=== PATIENT | female | born 1955 | race Caucasian/White ===

== ENCOUNTER → 2018-05-05 07:31 | Outpatient (CLI) | payer OTHER, SELFPAY ==
[2018-05-05 08:10] LABS: Add Manual Diff / Slide Review NO; Basophils Percent Auto 1.1 % (0-2); Eosinophils Percent Auto 5.5 % (2-4); Hematocrit 41.4 % (36-46); Lymphocytes Percent Auto 42.2 % (25-40); Mean Corpuscular HGB Conc 33.9 % (30-36); Mean Corpuscular Hemoglobin 31.5 PG (26-34); Mean Corpuscular Volume 92.9 fL (80-100); Neutrophils Absolute Auto 2200 /uL (3000-5900); Neutrophils Percent Auto 44.2 % (50-75); Platelet Count 330 X10^3/uL (150-400); Red Blood Cell Count 4.45 X10^6/uL (4.0-5.2); Red Cell Distribution Width 13.4 % (11.6-14.8)
[2018-05-05 08:18] LABS: Alanine Aminotransferase 21 IU/L (9-52); Albumin 4.4 g/dL (3.5-5.0); Albumin Globulin Ratio 1.5 (1.0-2.8); Alkaline Phosphatase 71 U/L (38-126); Aspartate Aminotransferase 21 IU/L (14-36); BUN Creatinine Ratio 22.2 (6-22); Bilirubin Total 0.8 mg/dL (0.2-1.3); Blood Urea Nitrogen 20 mg/dL (7-17); Calcium 9.6 mg/dL (8.4-10.2); Carbon Dioxide 32 mmol/L (22-32); Chloride 102 mmol/L (98-107); Cholesterol 202 mg/dL (140-199); Estimated Glomerular Filt Rate > 60.0 mL/min (>60); Glucose 96 mg/dL (80-110); HDL Cholesterol 64 mg/dL (40-60); HEMOLYSIS < 15 (0-50); LDL Cholesterol Calculated 109 mg/dL (<100); Potassium 4.3 mmol/L (3.4-5.1); Sodium 143 mmol/L (137-145); Total Protein 7.4 g/dL (6.3-8.2); Triglycerides 147 mg/dL (35-150)
[2018-05-05 08:47] LABS: Thyroid Stimulating Hormone 4.16 uIU/mL (0.47-4.68)
== END ==
PROVIDERS: Family Provider Internal Medicine; PCP Internal Medicine; Visit Provider Internal Medicine
DX: E78.5 Hyperlipidemia, unspecified (principal)
CPT/HCPCS: 36415; 80053; 80061; 84443; 85025

== ENCOUNTER → 2018-05-18 12:12 | Outpatient (CLI) | payer OTHER, SELFPAY ==
--- NOTE | 2018-05-18 12:15 | DI.US.S_ITS ---
PROCEDURE: US PELVIC COMPLETE INDICATIONS: FAMILY HISTORY OVARIAN CANCER TECHNIQUE: Real-time scanning was performed of the pelvic organs, with image documentation. Additional endovaginal scanning was necessary due to incomplete visualization of the adnexal and endometrial structures by transabdominal scanning. COMPARISON: [facility], , PELVIC COMPLETE, 03/18/2016, 13:10. FINDINGS: Transabdominal scanning: Limited scanning through the kidneys shows no hydronephrosis. No pathologic free abdominal or pelvic fluid. Posterior intramural fibroid no significant change measuring 1.7 x 1.1 x 1.9 cm. Endovaginal scanning: Uterus: Uterus is normal in size at 6.4 x 3.1 x 4.3 cm. The endometrium measures 2.9 mm in combined thickness. Ovaries: Normal ovary measuring 1.5 x 1.2 x 1.1 cm on the right and 1.6 x 0.9 x 0.9 cm on the left. IMPRESSION: Stable appearance of intramural fibroid and otherwise normal pelvic ultrasound. Dictated by: Elliott YOUNG Interpreted: Eduar Underwood MD on 05/18/2018 at 14:48 Approved by: Eduar Underwood M.D. on 05/18/2018 at 15:44
== END ==
PROVIDERS: Family Provider Internal Medicine; PCP Internal Medicine; Visit Provider Internal Medicine
DX: Z12.73 Encounter for screening for malignant neoplasm of ovary (principal); Z80.41 Family history of malignant neoplasm of ovary
CPT/HCPCS: 76830; 76856

== ENCOUNTER → 2018-08-25 15:24 | Outpatient (CLI) | payer OTHER, SELFPAY ==
--- NOTE | 2018-08-25 | DI.MG.S_ITS ---
BILATERAL DIGITAL SCREENING MAMMOGRAM 3D/2D WITH CAD: 08/25/2018 CLINICAL: Routine screening. Family history of breast cancer. Comparison is made to exams dated: 08/08/2017 mammogram, 07/23/2016 mammogram, and 07/14/2015 mammogram - [facility]. The tissue of both breasts is heterogeneously dense. This may lower the sensitivity of mammography. Current study was also evaluated with a Computer Aided Detection (CAD) system. No significant masses, calcifications, or other findings are seen in either breast. There has been no significant interval change. IMPRESSION: NEGATIVE There is no mammographic evidence of malignancy. A 1 year screening mammogram is recommended. This exam was interpreted at Station ID: [id number]. NOTE: For mammograms, a report in lay terms will be sent to the patient. Approximately 15% of breast malignancies will not be visualized mammographically. In the management of a palpable breast mass, a negative mammogram must not discourage biopsy of a clinically suspicious lesion. Electronically Signed By: Elysia de los santos/ev:08/25/2018 15:52:30 letter sent: Normal Exam ACR BI-RADS Category 1: Negative 3341F
== END ==
PROVIDERS: PCP Internal Medicine; Visit Provider Internal Medicine
DX: Z12.31 Encounter for screening mammogram for malignant neoplasm of breast (principal); Z80.3 Family history of malignant neoplasm of breast
CPT/HCPCS: 77063; 77067

== ENCOUNTER 2019-06-02 20:13 | Emergency (ER) | payer OTHER, SELFPAY ==
[2019-06-02 20:21] VITALS: BP 135/58; PULSE 71; RESP 16; TEMP 36.9; O2SAT 100; BMI 19.5
--- NOTE | 2019-06-02 20:23 | DI.RAD.S_ITS ---
PROCEDURE: XR ANKLE RT MIN 3V INDICATIONS: rolled right ankle TECHNIQUE: 3 views of the ankle were acquired. COMPARISON: None. FINDINGS: Bones: Transverse nondisplaced distal fibular fracture. There is a partially evaluated, possibly Y. shaped, intra-articular fracture at the base of the fifth metatarsal with mild displacement. No other fractures are visible. Ankle mortise is normally aligned. No suspicious bony lesions. Soft tissues: Small tibiotalar joint effusion. Achilles tendon appears normal. IMPRESSION: 1. Nondisplaced distal fibular avulsion fracture. 2. Mildly displaced, Y. shaped fracture at the fifth metatarsal base with intra-articular extension. Further evaluation with plain films of the right foot is recommended. This was discussed with Dr. Ovalle in emergency room at 2048 hrs. 3. Small tibiotalar joint effusion. Dictated by: Dalila Villanueva M.D. on 06/02/2019 at 20:47 Approved by: Dalila Villanueva M.D. on 06/02/2019 at 20:51
--- NOTE | 2019-06-02 20:36 | ED.LOWEXIN ---
HPI - Extremity Injury (Lower) General Chief Complaint: Extremity Injury, Lower Stated Complaint: fall down stairs, rolled right foot, pain Time Seen by Provider: 06/02/19 20:14 Source: patient Mode of arrival: wheelchair Limitations: no limitations History of Present Illness HPI Narrative: 64-year-old female here for evaluation of right ankle/foot injury. She states that she rolled her ankle when she was walking down the flex stairs. She did not hit her head. Has been unable to walk since then. Related Data Home Medications Medication Instructions Recorded Confirmed CA PANTOTHENATE/FOLIC ACID/VIT 1 tab PO Q DAY #0 04/10/12 05/09/18 (MULTIVITAMIN) Coenzyme Q10 (#CO ENZYME Q-10) 100 mg PO QDAY #0 04/10/12 05/09/18 Previous Rx's Medication Instructions Recorded spironolactone 100 mg tablet 100 mg PO QDAY #90 tab 05/09/18 Allergies Allergy/AdvReac Type Severity Reaction Status Date / Time Sulfa (Sulfonamide Allergy Mild Unverified 06/02/19 20:23 Antibiotics) Review of Systems Constitutional Constitutional: Denies fever(s) and Denies headache(s) ENT Ears, Nose, Mouth, and Throat: Denies headache(s) Cardiovascular Cardiovascular: Denies chest pain and Denies dyspnea Respiratory Respiratory: Denies dyspnea Musculoskeletal Comments: Right ankle pain Integumentary/Breasts Comments: Bruising the right side of foot Neurologic Neurologic: Denies headache(s) Hematologic/Lymphatic Hematologic/Lymphatic: Denies easy bleeding and Denies easy bruising [facility] Medical History Abnormal Pap smear of cervix (Resolved) Acne (Chronic ~1967) Chicken pox (Resolved ~1969) Headache (Chronic ~1974) Hyperlipidemia (Chronic) Migraines (Chronic ~1977) Mumps (Resolved ~1967) Sleep apnea (Chronic ~2014) Vision disorder (Chronic) Surgical History (Updated 05/16/18 @ 19:00 by Nancy Gonzales) Anesthesia (Resolved) Femur fracture (Resolved ~1982) History of plastic surgery (Resolved ~1984) History of plastic surgery (Acute ~1982) Status post dilation and curettage (~1994) Family History Brother Age: 57 High cholesterol Father Age: 88 Cancer Heart disease Hypertension High cholesterol Mother Age: 88 Hypertension High cholesterol Dementia History of hysterectomy Hospice care Grandfather Heart disease Grandmother Heart disease Grandfather Lymphoma Grandmother No problems noted. Social History Smoking Status: Never smoker Family History Brother Age: 57 High cholesterol Father Age: 88 Cancer Heart disease Hypertension High cholesterol Mother Age: 88 Hypertension High cholesterol Dementia History of hysterectomy Hospice care Grandfather Heart disease Grandmother Heart disease Grandfather Lymphoma Grandmother No problems noted. Social History Smoking Status: Never smoker Exam Initial Vital Signs Initial Vital Signs: Vital Signs Temperature 98.4 F 06/02/19 20:21 Pulse Rate 71 06/02/19 20:21 Respiratory Rate 16 06/02/19 20:21 Blood Pressure 135/58 L 06/02/19 20:21 Pulse Oximetry 100 06/02/19 20:21 Const General: cooperative and comfortable Orientation: alert and awake HENMT Head: normal to inspection and normocephalic Resp Effort & Inspection: normal respiratory effort Auscultation: clear to auscultation bilaterally Cardio Pulses: dorsalis pedis present on the right Skin Other: Bruising along the base of the 5th metatarsal on the right Neuro Sensory Exam: no sensory deficits noted Extrem Other: No proximal fibula tenderness. does have tenderness to palpation at the base of the lateral malleolus and along the base of the 5th metatarsal Psych Appearance: grossly normal and well kempt Procedures Orthopedic Splinting/Casting Injury #1: Side: right Lower Extremity Injury Location: ankle Lower Extremity Immobilizer: boot orthosis Other Orthopedic Equipment: crutches Post splinting neuro exam: intact Post splinting vascular exam: intact Placed by: Nursing Course Orders Ordered: ED Orders 06/02/19 20:23 XR ankle RT min 3V Stat 06/02/19 20:47 XR foot RT min 3V Stat Vital Signs Vital signs: Vital Signs - 8 hr 06/02/19 20:21 Temperature 98.4 F Pulse Rate 71 Respiratory Rate 16 Blood Pressure 135/58 L Pulse Oximetry 100 MDM - Extremity Injury (Lower) Imaging Data X-ray ankle: Radiologist's impression: [address] [address] XRay Report Signed Patient: Fidelina Damon#: [id number] : 7Acct:[id number] Age/Sex: 64 / FDate of Service: 06/02/19 Loc: ED Accession Number: [id number] Procedure: XR ankle RT min 3V Ordering Provider: Ad Ovalle D.O. PROCEDURE: XR ANKLE RT MIN 3V INDICATIONS: rolled right ankle TECHNIQUE: 3 views of the ankle were acquired. COMPARISON: None. FINDINGS: Bones: Transverse nondisplaced distal fibular fracture. There is a partially evaluated, possibly Y. shaped, intra-articular fracture at the base of the fifth metatarsal with mild displacement. No other fractures are visible. Ankle mortise is normally aligned. No suspicious bony lesions. Soft tissues: Small tibiotalar joint effusion. Achilles tendon appears normal. IMPRESSION: 1. Nondisplaced distal fibular avulsion fracture. 2. Mildly displaced, Y. shaped fracture at the fifth metatarsal base with intra-articular extension. Further evaluation with plain films of the right foot is recommended. This was discussed with Dr. Ovalle in emergency room at 2048 hrs. 3. Small tibiotalar joint effusion. Dictated by: Dalila Villanueva M.D. on 06/02/2019 at 20:47 Approved by: Dalila Villanueva M.D. on 06/02/2019 at 20:51 X-ray foot: Radiologist's impression: [place] [address] XRay Report Signed Patient: Fidelina Damon [facility]#: [id number] : 7At:[id number] Age/Sex: 64 / FDate of Service: 06/02/19 Loc: ED Accession Number: [id number] Procedure: XR foot RT min 3V Ordering Provider: Ad Ovalle D.O. PROCEDURE: XR FOOT RT MIN 3V INDICATIONS: base of 5th fx TECHNIQUE: 3 views of the foot were acquired. COMPARISON: None. FINDINGS: Bones: Moderately displaced, single plane, oblique transverse fracture through the lateral aspect of the fifth metatarsal base extending through the midportion of the articular surface. No other fractures or malalignment. Nondisplaced distal fibular avulsion fracture is also partially imaged. No suspicious bony lesions. Soft tissues: No tibiotalar joint effusion. Achilles tendon appears normal. IMPRESSION: Moderately displaced, intra-articular fifth metatarsal base fracture. Nondisplaced distal fibular cortical avulsion fracture. Dictated by: Dalila Villanueva M.D. on 06/02/2019 at 21:08 Approved by: Dalila Villanueva M.D. on 06/02/2019 at 21:10 [facility] Narrative Medical decision making narrative: Patient is neurovascularly intact. She does have a distal fibular fracture and avulsion fracture of the base of the 5th metatarsal. She was placed in a walking boot and given crutches. She denied any need for pain medication. We discussed return precautions and follow-up instructions. She expressed understanding and agreement with plan. Discharge Plan Departure Patient Disposition: Home Clinical Impression: Fracture of distal end of fibula Qualifiers: Encounter type: initial encounter Fracture type: closed Fracture morphology: unspecified fracture morphology Laterality: right Qualified Code(s): S82.831A - Other fracture of upper and lower end of right fibula, initial encounter for closed fracture Fracture of fifth metatarsal bone of right foot Qualifiers: Encounter type: initial encounter Fracture type: closed Fracture alignment: nondisplaced Qualified Code(s): S92.354A - Nondisplaced fracture of fifth metatarsal bone, right foot, initial encounter for closed fracture Instructions: How to Use Crutches, Foot Fracture, DI for Ankle Fracture, How to Use a Walking Boot Activity Restrictions/Additional Instructions: Use the crutches as needed for your comfort. The walking boot should be worn when you are going long distance is however you can put pressure on your foot without the boot. You can take the boot off to shower and to sleep. On Tuesday contact your primary provider for a follow-up. If needed you can contact the [facility] group at [phone] Prescriptions: No Action Coenzyme Q10 (#CO ENZYME Q-10) 100 mg PO QDAY Qty: 0 RF: 0 CA PANTOTHENATE/FOLIC ACID/VIT (MULTIVITAMIN) 1 tab PO Q DAY Qty: 0 RF: 0 spironolactone 100 mg tablet 100 mg PO QDAY Qty: 90 RF: 3 Referrals: Joana Barrios ARNP [Primary Care Provider] -
--- NOTE | 2019-06-02 20:47 | DI.RAD.S_ITS ---
PROCEDURE: XR FOOT RT MIN 3V INDICATIONS: base of 5th fx TECHNIQUE: 3 views of the foot were acquired. COMPARISON: None. FINDINGS: Bones: Moderately displaced, single plane, oblique transverse fracture through the lateral aspect of the fifth metatarsal base extending through the midportion of the articular surface. No other fractures or malalignment. Nondisplaced distal fibular avulsion fracture is also partially imaged. No suspicious bony lesions. Soft tissues: No tibiotalar joint effusion. Achilles tendon appears normal. IMPRESSION: Moderately displaced, intra-articular fifth metatarsal base fracture. Nondisplaced distal fibular cortical avulsion fracture. Dictated by: Dalila Villanueva M.D. on 06/02/2019 at 21:08 Approved by: Dalila Villanueva M.D. on 06/02/2019 at 21:10
[2019-06-02 21:56] VITALS: BP 110/62; PULSE 57; RESP 16; O2SAT 99
== END 2019-06-02 21:56 | disposition home or self-care (01) ==
PROVIDERS: Emergency Provider Emergency Medicine; PCP Internal Medicine
DX: S82.831A Other fracture of upper and lower end of right fibula, initial encounter for closed fracture (principal); S92.354A Nondisplaced fracture of fifth metatarsal bone, right foot, initial encounter for closed fracture
CPT/HCPCS: 29505; 29550; 73610; 73630; 99283

== ENCOUNTER → 2019-09-06 17:59 | Outpatient (CLI) | payer OTHER, SELFPAY ==
--- NOTE | 2019-09-06 | DI.MG.S_ITS ---
BILATERAL DIGITAL SCREENING MAMMOGRAM 3D/2D WITH CAD: 09/06/2019 CLINICAL: Routine screening. Family history of breast cancer. Comparison is made to exams dated: 08/25/2018 mammogram, 08/08/2017 mammogram, and 07/23/2016 mammogram - [facility]. The tissue of both breasts is heterogeneously dense. This may lower the sensitivity of mammography. Current study was also evaluated with a Computer Aided Detection (CAD) system. No significant masses, calcifications, or other findings are seen in either breast. There has been no significant interval change. IMPRESSION: NEGATIVE There is no mammographic evidence of malignancy. A 1 year screening mammogram is recommended. This exam was interpreted at Station ID: [id number]. NOTE: For mammograms, a report in lay terms will be sent to the patient. Approximately 15% of breast malignancies will not be visualized mammographically. In the management of a palpable breast mass, a negative mammogram must not discourage biopsy of a clinically suspicious lesion. Electronically Signed By: Elysia de los santos/ev:09/07/2019 08:00:22 letter sent: Normal Exam ACR BI-RADS Category 1: Negative 3341F
== END ==
PROVIDERS: PCP Internal Medicine; Visit Provider Internal Medicine
DX: Z12.31 Encounter for screening mammogram for malignant neoplasm of breast (principal); Z80.3 Family history of malignant neoplasm of breast
CPT/HCPCS: 77063; 77067

== ENCOUNTER → 2019-11-08 11:47 | Outpatient (CLI) | payer OTHER, SELFPAY ==
--- NOTE | 2019-11-08 | DI.US.S_ITS ---
PROCEDURE: US PELVIC COMPLETE INDICATIONS: LLQ ABD SWELLING, MASS TECHNIQUE: Real-time scanning was performed of the pelvic organs, with image documentation. Additional endovaginal scanning was necessary due to incomplete visualization of the adnexal and endometrial structures by transabdominal scanning. COMPARISON: [facility], , US PELVIC COMPLETE, 05/18/2018, 12:23. FINDINGS: Transabdominal scanning: Limited scanning through the kidneys shows no hydronephrosis. No pathologic free abdominal or pelvic fluid. Endovaginal scanning: Uterus: Uterus is normal in size at this 0.1 x 3.1 x 3.9 cm. The endometrium measures 1.9 mm in combined thickness. There is a 1.5 x 1.1 x 1.8 cm intramural fibroid on the posterior wall at midline. Ovaries: Ovaries are normal in size and echotexture. Right ovary measures 1.9 x 1.1 x 1.0 cm. Left ovary measures 2.0 x 0.9 x 0.9 cm. Note is made of prominent pelvic vessels. IMPRESSION: 1. Stable intramural uterine fibroid. 2. Normal ovaries. 3. Dilated pelvic vessels may be secondary to pelvic congestion syndrome. Dictated by: Rebel Graf M.D. on 11/08/2019 at 14:01 Approved by: Rebel Graf M.D. on 11/08/2019 at 14:16
== END ==
PROVIDERS: PCP Internal Medicine; Referring Provider Internal Medicine; Visit Provider Internal Medicine
DX: R19.04 Left lower quadrant abdominal swelling, mass and lump (principal); D25.1 Intramural leiomyoma of uterus
CPT/HCPCS: 76830; 76856

== ENCOUNTER → 2020-09-09 16:37 | Outpatient (CLI) | payer OTHER, SELFPAY ==
--- NOTE | 2020-09-09 16:38 | DI.MG.S_ITS ---
BILATERAL DIGITAL SCREENING MAMMOGRAM 3D/2D WITH CAD: 09/09/2020 CLINICAL: Routine screening. Family history of breast cancer. Comparison is made to exams dated: 09/06/2019 mammogram, 08/25/2018 mammogram, 08/08/2017 mammogram, 07/23/2016 mammogram, and 07/14/2015 mammogram - [facility]. The tissue of both breasts is heterogeneously dense. This may lower the sensitivity of mammography. Current study was also evaluated with a Computer Aided Detection (CAD) system. No significant masses, calcifications, or other findings are seen in either breast. There has been no significant interval change. IMPRESSION: NEGATIVE There is no mammographic evidence of malignancy. A 1 year screening mammogram is recommended. This exam was interpreted at Station ID: [id number]. NOTE: For mammograms, a report in lay terms will be sent to the patient. Approximately 15% of breast malignancies will not be visualized mammographically. In the management of a palpable breast mass, a negative mammogram must not discourage biopsy of a clinically suspicious lesion. Electronically Signed By: Sree jorgensen/ev:09/10/2020 08:45:27 letter sent: Normal Exam ACR BI-RADS Category 1: Negative 3341F
== END ==
PROVIDERS: PCP Internal Medicine; Referring Provider Internal Medicine; Visit Provider Internal Medicine
DX: Z12.31 Encounter for screening mammogram for malignant neoplasm of breast (principal); Z80.3 Family history of malignant neoplasm of breast
CPT/HCPCS: 77063; 77067

== ENCOUNTER → 2021-10-17 14:13 | Outpatient (CLI) | payer OTHER, SELFPAY ==
--- NOTE | 2021-10-17 14:14 | DI.MG.S_ITS ---
BILATERAL DIGITAL SCREENING MAMMOGRAM 3D/2D WITH CAD: 10/17/2021 CLINICAL: Routine screening. Family history of breast cancer. Comparison is made to exams dated: 09/09/2020 mammogram, 09/06/2019 mammogram, and 08/25/2018 mammogram - [facility]. The tissue of both breasts is heterogeneously dense. This may lower the sensitivity of mammography. Current study was also evaluated with a Computer Aided Detection (CAD) system. No significant masses, calcifications, or other findings are seen in either breast. There has been no significant interval change. IMPRESSION: NEGATIVE There is no mammographic evidence of malignancy. A 1 year screening mammogram is recommended. This exam was interpreted at Station ID: [id number]. NOTE: For mammograms, a report in lay terms will be sent to the patient. Approximately 15% of breast malignancies will not be visualized mammographically. In the management of a palpable breast mass, a negative mammogram must not discourage biopsy of a clinically suspicious lesion. Electronically Signed By: Andriy nevarez/ev:10/19/2021 08:04:00 letter sent: Normal Exam ACR BI-RADS Category 1: Negative 3341F
== END ==
PROVIDERS: PCP Internal Medicine; Referring Provider Internal Medicine; Visit Provider Internal Medicine
DX: Z12.31 Encounter for screening mammogram for malignant neoplasm of breast (principal); Z80.3 Family history of malignant neoplasm of breast
CPT/HCPCS: 77063; 77067

== ENCOUNTER → 2022-02-25 15:15 | Outpatient (CLI) | payer OTHER, SELFPAY ==
--- NOTE | 2022-02-25 15:16 | DI.US.S_ITS ---
PROCEDURE: US PELVIC COMPLETE INDICATIONS: Right lower quadrant pain TECHNIQUE: Real-time scanning was performed of the pelvic organs, with image documentation. Additional endovaginal scanning was necessary due to incomplete visualization of the adnexal and endometrial structures by transabdominal scanning. COMPARISON: [facility], , US PELVIC COMPLETE, 11/08/2019, 12:05. FINDINGS: Uterus: Uterus is normal in size at 6.8 x 2.4 x 4.0 cm. The endometrium measures 1.4 mm combined thickness. There is a 1.5 x 1.0 x 1.9 cm intramural fibroid in the posterior uterine wall at midline (previously 1.5 x 1.8 cm). Ovaries: The right ovary measures 1.8 x 1.1 x 1.1 cm. The left ovary measures 1.6 x 1.3 x 1.1 cm. The ovaries have a normal sonographic appearance. Less than 12 follicles can be seen in each ovary. No adnexal masses are seen. Prominent pelvic vessels are noted in adnexa bilaterally. Other: No pathologic free abdominal or pelvic fluid. IMPRESSION: 1. A 1.5 x 1.0 x 1.9 cm uterine fibroid, unchanged in size. 2. Prominent pelvic vessels are seen suggesting pelvic congestion syndrome. 3. A cause for right lower quadrant pain is not definitively identified. We strive to produce accurate, complete, and clear reports of imaging services. To assist us in improving patient care, this report was composed using standard report templates and voice recognition software. Therefore, it may contain abnormal punctuation, insertions and/or omissions. Occasional wrong-word or sound-alike substitutions may occur. Though we review the report and make efforts to correct it, we do recommend that the report be read carefully in proper context to recognize any text inaccuracies. Dictated by: Rebel Graf M.D. on 02/25/2022 at 16:04 Approved by: Rebel Graf M.D. on 02/26/2022 at 9:01
== END ==
PROVIDERS: PCP Internal Medicine; Referring Provider Internal Medicine; Visit Provider Internal Medicine
DX: D25.1 Intramural leiomyoma of uterus (principal); R10.31 Right lower quadrant pain
CPT/HCPCS: 76830; 76856

== ENCOUNTER → 2022-11-04 13:11 | Outpatient (CLI) | payer MEDICARE, OTHER, SELFPAY ==
--- NOTE | 2022-11-04 | DI.MG.S_ITS ---
BILATERAL DIGITAL SCREENING MAMMOGRAM 3D/2D WITH CAD: 11/04/2022 CLINICAL: Routine screening. Family history of breast cancer. Comparison is made to exams dated: 10/17/2021 mammogram, 09/09/2020 mammogram, and 09/06/2019 mammogram - [facility]. Both breasts are heterogeneously dense, which may obscure small masses (category c / 51-75% glandular tissue). Current study was also evaluated with a Computer Aided Detection (CAD) system. No significant masses, calcifications, or other findings are seen in either breast. There has been no significant interval change. IMPRESSION: NEGATIVE There is no mammographic evidence of malignancy. A 1 year screening mammogram is recommended. Based on the Tyrer Cuzick model (a risk assessment model) the patient's lifetime risk is 12.9% and her 10 year risk is 6.3%. According to the ACR, ACS, and NCCN guidelines, an annual breast MRI exam along with mammogram is recommended if the patient's lifetime risk is 20% or greater. This exam was interpreted at Station ID: [id number]. NOTE: For mammograms, a report in lay terms will be sent to the patient. Approximately 15% of breast malignancies will not be visualized mammographically. In the management of a palpable breast mass, a negative mammogram must not discourage biopsy of a clinically suspicious lesion. Electronically Signed By: Ivan murillo/ev:11/04/2022 14:06:59 letter sent: Normal Exam ACR BI-RADS Category 1: Negative 3341F
== END ==
PROVIDERS: PCP Internal Medicine; Referring Provider Internal Medicine; Visit Provider Internal Medicine
DX: Z12.31 Encounter for screening mammogram for malignant neoplasm of breast (principal); Z80.3 Family history of malignant neoplasm of breast
CPT/HCPCS: 77063; 77067

== ENCOUNTER → 2023-08-25 12:21 | Outpatient (CLI) | payer MEDICARE, OTHER, SELFPAY ==
--- NOTE | 2023-08-25 | DI.RAD.S_ITS ---
Bone Density Report Name: TANG MAYER Age: 68 Sex: Female Ethnicity: White Date of : 1955 Indication: postmenopausal; screening for osteoporosis; Referring Provider: ZHANNA RAMIREZ Study: Bone densitometry was performed. Exam Date: August 25, 2023 Accession number: [id number] Bone Density: Region BMD T-score Z-score Classification AP Spine(L1-L4) 0.617 -3.9 -2.1 Osteoporosis Femoral Neck (Left) 0.584 -2.4 -0.8 Osteopenia Total Hip (Left) 0.637 -2.5 -1.2 Osteoporosis Femoral Neck (Right) 0.631 -2.0 -0.4 Osteopenia Total Hip (Right) 0.623 -2.6 -1.3 Osteoporosis Total Hip Mean 0.630 -2.6 -1.3 Osteoporosis World Health Organization criteria for BMD impression classify patients as: Normal (T-score at or above -1.0), Osteopenia (T-score between -1.0 and -2.5), or Osteoporosis (T-score at or below -2.5). 10-year Fracture Risk: FRAX not reported because: Some T-score for Spine Total or Hip Total or Femoral Neck at or below -2.5 Impression: The patient has osteoporosis, based on the Total Spine T-score. Discussion: HIGH RISK OF FRACTURE. BONE DENSITY IS UNDESIRABLY LOW AT ONE OR MORE SKELETAL SITES, CONSISTENT WITH OSTEOPOROSIS. ALSO, BONE DENSITY IS LOWER THAN EXPECTED FOR AGE AND SEX AT ONE OR MORE SKELETAL SITES; RECOMMEND A DILIGENT SEARCH FOR SECONDARY CAUSES OF BONE LOSS. This patient's lowest T-score meets the World Health Organization's (WHO) criteria for osteoporosis at one or more sites (T-score -2.5 or below). In untreated patients, the risk of osteoporotic fracture increases approximately two-fold for each 1.0 SD decrease in T-score. Low bone density is not the only risk factor for fracture; also consider factors such as patient's age, frailty or poor health, risk of falling, risk of injury, previous osteoporotic fracture, family history of osteoporosis, cigarette smoking, low body weight, etc. Not everyone with low bone mineral density has osteoporosis; osteomalacia and other metabolic bone disorders should also be considered. Patients who have osteoporosis should be evaluated for specific diseases and conditions (secondary causes) that may cause or contribute to bone loss. The [place] [employer] Endocrinologists (AACE) and National Osteoporosis Foundation (NOF) recommend pharmacologic intervention for all postmenopausal women whose T-score is in this range. Also, this patient's bone mineral density is below the range considered normal for healthy age-, sex-, and race-matched controls at least one site (Z-score -2.0 or below). This warrants careful evaluation for diseases and conditions that may contribute to accelerated bone loss. The patient should follow a healthful lifestyle (good nutrition with adequate calcium and vitamin D, and appropriate weight-bearing exercise). Follow-Up: Consider a repeat BMD and Vertebral Fracture Assessment (VFA) exam in 2 years or sooner if medically necessary, to reassess this patient's status. Reported by: DARRICK FARRIS M.D. on 08/25/2023 12:43:00 PM.
== END ==
PROVIDERS: PCP Internal Medicine; Referring Provider Internal Medicine; Visit Provider Internal Medicine
DX: Z78.0 Asymptomatic menopausal state (principal); Z87.81 Personal history of (healed) traumatic fracture; M81.0 Age-related osteoporosis without current pathological fracture
CPT/HCPCS: 77080

== ENCOUNTER → 2023-11-08 16:03 | Outpatient (CLI) | payer MEDICARE, OTHER, SELFPAY ==
--- NOTE | 2023-11-08 | DI.MG.S_ITS ---
BILATERAL DIGITAL SCREENING MAMMOGRAM 3D/2D WITH CAD: 11/08/2023 CLINICAL: Routine screening. Comparison is made to exams dated: 11/04/2022 mammogram, 10/17/2021 mammogram, and 09/09/2020 mammogram - [facility]. Both breasts are heterogeneously dense, which may obscure small masses (category c / 51-75% glandular tissue). Current study was also evaluated with a Computer Aided Detection (CAD) system. No significant masses, calcifications, or other findings are seen in either breast. There has been no significant interval change. IMPRESSION: NEGATIVE There is no mammographic evidence of malignancy. A 1 year screening mammogram is recommended. Based on the Tyrer Cuzick model (a risk assessment model) the patient's lifetime risk is 12.3% and her 10 year risk is 6.3%. According to the ACR, ACS, and NCCN guidelines, an annual breast MRI exam along with mammogram is recommended if the patient's lifetime risk is 20% or greater. This exam was interpreted at Station ID: [id number]. NOTE: For mammograms, a report in lay terms will be sent to the patient. Approximately 15% of breast malignancies will not be visualized mammographically. In the management of a palpable breast mass, a negative mammogram must not discourage biopsy of a clinically suspicious lesion. Electronically Signed By: Elysia de los santos/ev:11/08/2023 17:03:25 letter sent: Normal Exam ACR BI-RADS Category 1: Negative [id number]
== END ==
PROVIDERS: Family Provider Internal Medicine; PCP Internal Medicine; Referring Provider Internal Medicine; Visit Provider Internal Medicine
DX: Z12.31 Encounter for screening mammogram for malignant neoplasm of breast (principal); R92.333 Mammographic heterogeneous density, bilateral breasts
CPT/HCPCS: 77063; 77067

== ENCOUNTER → 2023-12-14 12:56 | Outpatient (CLI) | payer MEDICARE, OTHER, SELFPAY ==
[2023-12-14 17:28] LABS: Calcium 24 Hour Urine 110 mg/day (100-300); Calcium Urine Random 4.6 mg/dL; Collection Time Urine 24 Hours; Total Volume Urine 2400 mL
== END ==
PROVIDERS: Family Provider Internal Medicine; PCP Internal Medicine; Referring Provider Internal Medicine; Visit Provider Internal Medicine
DX: M81.0 Age-related osteoporosis without current pathological fracture (principal)
CPT/HCPCS: 82340; 82570

== ENCOUNTER 2023-12-15 09:45 | Outpatient (RCR) | payer MEDICARE, OTHER, SELFPAY ==
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
== END 2023-12-16 14:49 | disposition home or self-care (01) ==
LOC: PHYS 09:45
PROVIDERS: Family Provider Internal Medicine; PCP Internal Medicine; Referring Provider Internal Medicine; Visit Provider Internal Medicine
DX: M81.0 Age-related osteoporosis without current pathological fracture (principal)
CPT/HCPCS: 97110; 97161; 97530; 97535

== ENCOUNTER → 2024-01-06 13:19 | Outpatient (CLI) | payer MEDICARE, OTHER, SELFPAY ==
[2024-01-06 15:28] LABS: Calcium 24 Hour Urine 145 mg/day (100-300); Calcium Urine Random 6.6 mg/dL; Collection Time Urine 24 Hours; Total Volume Urine 2200 mL
[2024-01-06 15:30] LABS: Collection Time Urine 24 Hours; Creatinine 24 Hour Urine 902 mg/day (800-1800); Total Volume Urine 2200 mL
== END ==
PROVIDERS: Family Provider Internal Medicine; PCP Internal Medicine; Referring Provider Internal Medicine; Visit Provider Internal Medicine
DX: M81.0 Age-related osteoporosis without current pathological fracture (principal)
CPT/HCPCS: 82340; 82570

== ENCOUNTER → 2024-11-12 14:40 | Outpatient (CLI) | payer MEDICARE, OTHER, SELFPAY ==
--- NOTE | 2024-11-12 14:41 | DI.MG.S_ITS ---
BILATERAL DIGITAL SCREENING MAMMOGRAM 3D/2D WITH CAD: 11/12/2024 CLINICAL: Routine screening. Family history of breast cancer. Comparison is made to exams dated: 11/08/2023 mammogram, 11/04/2022 mammogram, and 10/17/2021 mammogram - [facility]. The breasts are heterogeneously dense, which may obscure small masses (category c / 51-75% glandular tissue). Current study was also evaluated with a Computer Aided Detection (CAD) system. No significant masses, calcifications, or other findings are seen in either breast. There has been no significant interval change. IMPRESSION: NEGATIVE There is no mammographic evidence of malignancy. A 1 year screening mammogram is recommended. Based on the Tyrer Cuzick model (a risk assessment model) the patient's lifetime risk is 11.7% and her 10 year risk is 6.2%. According to the ACR, ACS, and NCCN guidelines, an annual breast MRI exam along with mammogram is recommended if the patient's lifetime risk is 20% or greater. This exam was interpreted at Station ID: [id number]. NOTE: For mammograms, a report in lay terms will be sent to the patient. Approximately 15% of breast malignancies will not be visualized mammographically. In the management of a palpable breast mass, a negative mammogram must not discourage biopsy of a clinically suspicious lesion. Electronically Signed By: Dalila cole/ev:11/12/2024 17:10:26 letter sent: Normal Exam ACR BI-RADS Category 1: Negative
== END ==
PROVIDERS: Family Provider Internal Medicine; PCP Internal Medicine; Referring Provider Internal Medicine; Visit Provider Internal Medicine
DX: Z12.31 Encounter for screening mammogram for malignant neoplasm of breast (principal); Z80.3 Family history of malignant neoplasm of breast; R92.333 Mammographic heterogeneous density, bilateral breasts
CPT/HCPCS: 77063; 77067

== ENCOUNTER → 2025-02-27 14:38 | Outpatient (CLI) | payer MEDICARE, OTHER, SELFPAY ==
--- NOTE | 2025-02-27 14:43 | DI.RAD.S_ITS ---
PROCEDURE: XR DEXA AXIAL SKELETON INDICATIONS: OSTEOPOROSIS SCREENING COMPARISON: [facility], CR, XR DEXA AXIAL SKELETON, 08/25/2023, 12:34. FINDINGS: Lumbar Spine: Bone mineral density 0.707 (previously 0.617) g/cm2, T score -3.1 (previously -3.9). Left Femoral Neck: Bone mineral density 0.621 (previously 0.584) g/cm2, T score -2.1 (previously -2.4). Left Hip: Bone mineral density 0.655 (previously 0.637) g/cm2, T score -2.3 (previously -2.5). Fracture Risk Calculation (when applicable): 10-year fracture risk of a major osteoporotic fracture 17 percent and of a hip fracture 2.9 percent. (T score greater or equal to -1.0 to: NORMAL) (T score from -1.1 to -2.4: OSTEOPENIA) (T score less than or equal to -2.5: OSTEOPOROSIS) IMPRESSION: Osteoporosis--- recommend repeat DEXA in 2 years or less for reassessment of response to treatment. Follow-up guidelines as follows: Osteoporosis: Consider a repeat DEXA and Vertebral Fracture Assessment (VFA) exam in 2 years or sooner if medically necessary, to reassess this patient's status. Osteopenia: Consider a repeat DEXA in 2-3 years to reassess this patient's status, or if there is a new clinical indication. Normal: Consider a repeat DEXA in 5 years or sooner, or if there is a new clinical indication. All treatment decisions require clinical judgment and consideration of individual patient factors, including patient preferences, comorbidities, previous drug use, risk factors not captured in the FRAX model (e.g., frailty, falls, vitamin D deficiency, increased bone turnover, interval significant decline in bone density ) and possible under- or over-estimation of fracture risk by FRAX. In addition, the NOF Guide recommends that FDA-approved medical therapies be considered in postmenopausal women and men age >= 50 years with a: * Hip or vertebral (clinical or morphometric) fracture * T-score of <=-2.5 at the spine or hip * Ten-year fracture probability by FRAX of >= 3% for hip fracture or >=20% for major osteoporotic fracture. Dictated by: Gonzalo Lancaster M.D. on 02/27/2025 at 19:03 Approved by: Gonzalo Lancaster M.D. on 02/27/2025 at 19:06
== END ==
LOC: RAD 14:40
PROVIDERS: Family Provider Internal Medicine; PCP Internal Medicine; Referring Provider Internal Medicine; Visit Provider Internal Medicine
DX: M81.0 Age-related osteoporosis without current pathological fracture (principal)
CPT/HCPCS: 77080